=== PATIENT | female | born 1965 | race Caucasian/White ===

== ENCOUNTER → 2020-12-12 15:26 | Outpatient (CLI) | payer OTHER, SELFPAY ==
--- NOTE | ~2020-12-12 | US_ITS ---
EXAMINATION: US pelvic complete EXAM DATE: 12/12/2020 15:50 INDICATION: Other specified abnormal uterine and vaginal bleeding. 55 years old. TECHNIQUE: Pelvic transabdominal sonogram was performed. There are multiple grayscale and Doppler im ages available for interpretation. There is no prior study for comparison. FINDINGS: Uterus measures 14.3 x 5.8 x 8.6 cm, with anterior fibroid measuring up to 3.8 cm. Endomet rial stripe measures 10 mm, within normal limits for premenopausal patient. There is no free pelvic fluid. Right adnexa: The ovary measures 3.8 x 2.9 x 3.1 cm and is morphologically normal. Ovarian vascular f low confirmed. Left adnexa: The ovary measures 4.8 x 2.9 x 4.4 cm and is morphologically normal. Ovarian vascular fl ow confirmed. IMPRESSION: 1. Anterior myometrial fibroid. 2. Endometrium 10 mm in thickness within normal limits for reported premenopausal status. Reviewed, dictated and finalized at location A. IMPRESSION: 1. Anterior myometrial fibroid. 2. Endometrium 10 mm in thickness within normal limits for reported premenopau simeon status.
== END ==
PROVIDERS: Visit Provider Obstetrics & Gynecology
DX: N93.8 Other specified abnormal uterine and vaginal bleeding (principal)
CPT/HCPCS: 76856

== ENCOUNTER 2021-01-11 02:00 | Day surgery (SDC) | payer OTHER, SELFPAY ==
[2021-01-09 09:23] VITALS: BMI 25.9
--- NOTE | 2021-01-10 17:25 | WPDANESEPP ---
Anes - Eval Pre Procedure Procedure: Operation Date: 01/11/21 07:30 Proposed Procedures p Hysteroscopy Dilation and Curettage - Nasim Cornell MD Date/Time: 01/10/21 17:25 Pre Op Diagnosis: Abnormal Uterine Bleeding Patient Data Age: 55 Gender: F Height: 1.68 m Weight: 73 kg Allergies Allergy/AdvReac Type Severity Reaction Status Date / Time No Known Allergies Allergy Verified 01/18/18 19:58 Home Medications Medication Instructions Recorded Confirmed Type multivitamin [Chewable 1 tablet PO DAILY 01/09/21 01/09/21 History Multivitamin] Patient hx anesthesia problems: none Family hx anesthesia problems: none PMFSH Past Medical History Medical History (Updated 01/10/21 @ 17:25 by Qasim Buchanan DO) Healthy adult Surgical History Surgical History (Updated 01/10/21 @ 17:25 by Qasim Buchanan DO) History of eye surgery Social History Social History Smoking status: Never smoker Living arrangements: with family Exam Day of Procedure 01/10/21 17:25
[2021-01-11 06:21] VITALS: BP 141/74; PULSE 76; RESP 20; TEMP 36.2; O2SAT 100
[2021-01-11] MEDS: ACETAMINOPHEN 500 MG TABLET 1000 MG PO (06:39)
[2021-01-11] MEDS: LACTATED RINGERS 1,000 ML 30 ML IV CONT ×2 (06:50→08:01)
--- NOTE | 2021-01-11 06:50 | WPDANESEFPP ---
Anes - Eval Final PreProcedure Day of Procedure 01/11/21 06:50 Patient weight: overweight Heart: regular rate and rhythm Lungs: clear to auscultation Airway: Mallampati scale class II Neurological: alert and oriented Last oral intake: >/= 8 hours ASA classification: II Emergent: no Anesthetic plan: proceed Anesthesia type and monitoring: general GIVS and standard monitoring Informed Consent: The patient's anesthetic plan and its attendant risks and benefits were discussed with the patient/family/POA. Questions were solicited and answers provided to the satisfaction of the patient/family/POA.
--- NOTE | 2021-01-11 07:22 | PM.HPGS ---
History of Present Illness History of Present Illness Consent: Risks, benefits, and alternatives have been discussed and questions answered. Patient agrees to proceed with procedure. Chief complaint: Abnormal Uterine Bleeding Narrative: Clare Singh is a 55 year old female nullip with abnormal uterine bleeding cycles longer than 10 days a month. ultrasound thickened stripe and questionable fibroid. Review of Systems Review of Systems: All systems reviewed & are unremarkable except as noted in HPI and below PMFSH Past Medical History Medical History (Updated 01/11/21 @ 07:23 by Nasim Cornell MD) Abnormal uterine bleeding (AUB) Healthy adult Surgical History Surgical History History of eye surgery Social History Social History Smoking status: Never smoker Living arrangements: with family Meds Home Medications and Allergies Home Medications Medication Instructions Recorded Confirmed Type multivitamin [Chewable 1 tablet PO DAILY 01/09/21 01/11/21 History Multivitamin] Allergies Allergy/AdvReac Type Severity Reaction Status Date / Time No Known Allergies Allergy Verified 01/18/18 19:58 Vital Signs Vital Signs - 24 hr 01/11/21 06:21 Temperature 36.2 C L Pulse Rate 76 Respiratory Rate 20 Blood Pressure 141/74 H Pulse Oximetry 100 Exam GI: Auscultation: normal bowel sounds : Bimanual exam- vagina & uterus: normal bimanual exam Bimanual Exam- Adnexa, other: normal adnexae and adnexae mobile Assessment and Plan Assessment and plan (1) Abnormal uterine bleeding (AUB): Code(s): N93.9 - Abnormal uterine and vaginal bleeding, unspecified Status: Acute Assessment and Plan: scheduled for a hysteroscopy with dilation and curettage. Risk and benefits reviewes with patient.
--- NOTE | 2021-01-11 07:25 | WPDHPUPDATE1 ---
History and Physical Update Update Date/Time: 01/11/21 07:25 History and Physical has been reviewed, including an updated exam of the patient. There are NO changes in the patient's condition. Risks, benefits, and alternatives have been discussed and questions answered. Patient agrees to proceed with procedure.
[2021-01-11 07:29] LABS: Beta HCG Quantitative < 2.39 mIU/ML
[2021-01-11 08:01] VITALS: BP 120/63; PULSE 75; RESP 16; O2SAT 96
--- NOTE | 2021-01-11 08:04 | W.PM.PROC2 ---
Procedure Note - Detailed Date of Procedure 01/11/21 Pre-op Diagnosis Abnormal Uterine Bleeding Post-op Diagnosis same Procedure Performed hysteroscopy d and c Surgeon Nasim Cornell MD Anesthesia local Description of Procedure Patient was taken to the operating room with IV running. She was prepared and draped in a normal sterile fashion. A bivalve speculum was placed into the vagina. The anterior lip of the cervix was grasped with a single-tooth tenaculum. The cervix was injected with 1% lidocaine at the 2 and 10 o'clock position 5cc bilaterally. The uterus was sounded to 6cm. And the cervix was serially dilated with Hegar dilators. Hysteroscope introduced and noted uterine septum with bilateral ostia. Hysteroscope was removed sharp curettage was performed in all 4 quadrants and specimen sent to pathology. Instruments were removed from the vagina hemostasis was assured patient is taken to recovery room Estimated Blood Loss 10 Drains Yes Packing No Pathology yes Complications None Condition stable Disposition observation
[2021-01-11 08:30] VITALS: BP 151/80; PULSE 52; RESP 20
[2021-01-11 09:00] VITALS: BP 162/74; PULSE 53; RESP 20
[2021-01-11 09:30] VITALS: BP 153/66; PULSE 51; RESP 20
== END 2021-01-11 09:41 | disposition home or self-care (01) ==
PROVIDERS: Anesthesiology; Visit Provider Obstetrics & Gynecology
PROC: 0U5B8ZZ Destruction of Endometrium, Via Natural or Artificial Opening Endoscopic (ICD-10-PCS; CPT 58563; principal; 2021-01-11 07:30)
DX: N93.9 Abnormal uterine and vaginal bleeding, unspecified (principal)
CPT/HCPCS: 58558; 36415; 84702; 88305; A9270; J2250; J3010; J7030; J7120

== ENCOUNTER 2021-04-24 00:50 | Day surgery (SDC) | payer OTHER, SELFPAY ==
[2021-04-06 14:07] VITALS: BMI 24.9
--- NOTE | 2021-04-24 08:18 | WPDANESEPPF ---
Anes - Initial Pre Proc Eval Procedure: Operation Date: 04/24/21 11:30 Proposed Procedures p Screening Colonoscopy - Benjy Mccoy MD Date/Time: 04/24/21 08:19 Surgeon: Benjy Mccoy MD Pre Op Diagnosis: neoplasm screening Patient Data Age: 55 Gender: F Height: 1.68 m Weight: 70 kg Allergies Allergy/AdvReac Type Severity Reaction Status Date / Time No Known Allergies Allergy Verified 04/06/21 14:06 Home Medications Medication Instructions Recorded Confirmed Type multivitamin [Chewable 1 tablet PO DAILY 01/09/21 04/06/21 History Multivitamin] Patient hx anesthesia problems: none Family hx anesthesia problems: none Results Review: All pre-operative results and documents have been reviewed as part of the pre-operative evaluation. [facility] Past Medical History Medical History (Updated 04/24/21 @ 08:19 by Rogerio Renae MD) Abnormal uterine bleeding (AUB) Anemia Healthy adult Surgical History Surgical History History of eye surgery Social History Social History Smoking status: Never smoker Alcohol intake: current Alcohol use details: Monthly Living arrangements: with family Spiritual care concerns: No Anes - Eval Final PreProcedure Day of Procedure 04/24/21 08:19 Patient weight: normal Heart: regular rate and rhythm Lungs: clear to auscultation and normal air movement Airway: Mallampati scale class II Neurological: alert and oriented Last oral intake: >/= 8 hours ASA classification: I Emergent: no Anesthetic plan: proceed Anesthesia type and monitoring: general GIVS Results Review: All pre-operative results and documents have been reviewed as part of the pre-operative evaluation. Informed Consent: The patient's anesthetic plan and its attendant risks and benefits were discussed with the patient/family/POA. Questions were solicited and answers provided to the satisfaction of the patient/family/POA.
[2021-04-24 10:44] VITALS: BP 150/82; PULSE 97; RESP 18; TEMP 37.2; O2SAT 100
[2021-04-24] MEDS: LACTATED RINGERS 1,000 ML 150 ML IV CONT (10:51)
[2021-04-24 11:21] VITALS: BP 124/67; PULSE 66; RESP 14; O2SAT 99
--- NOTE | 2021-04-24 11:21 | WPDGICN ---
Assessment and Plan Assessment and plan (1) Encounter for screening colonoscopy: Code(s): Z12.11 - Encounter for screening for malignant neoplasm of colon Status: Acute Assessment and Plan: Patient presents today for screening colonoscopy. She appears to be at average risk for colon polyps. GI Consult Note Consult date/time: 04/24/21 11:21 HPI: Clare Singh is a 55 year old female Presents for screening colonoscopy. Patient reports that her current weight appetite and bowel movements are normal. She denies abdominal pain. She has had no bleeding. Family history is noncontributory. Patient reports 7 years ago had a negative Cologuard test. Review of Systems Review of Systems: All systems reviewed & are unremarkable except as noted in HPI and below PMFSH Past Medical History Medical History (Updated 04/24/21 @ 11:22 by Benjy Mccoy MD) Abnormal uterine bleeding (AUB) Anemia Healthy adult Surgical History Surgical History History of eye surgery Social History Social History Smoking status: Never smoker Alcohol intake: current Alcohol use details: Monthly Living arrangements: with family Spiritual care concerns: No Meds Home Medications and Allergies Home Medications Medication Instructions Recorded Confirmed Type multivitamin [Chewable 1 tablet PO DAILY 01/09/21 04/06/21 History Multivitamin] Allergies Allergy/AdvReac Type Severity Reaction Status Date / Time No Known Allergies Allergy Verified 04/24/21 10:42 Vital Signs Vital Signs - 24 hr 04/24/21 10:44 Temperature 99 F Pulse Rate 97 Respiratory Rate 18 Blood Pressure 150/82 H Pulse Oximetry 100 Exam Narrative: Physical exam reveals patient be alert. Vital signs stable. HEENT exam is unremarkable. Patient is anicteric. Lungs are clear to auscultation and percussion. Heart is without murmur or extra sounds. Abdominal exam bowel sounds are present soft nontender with no organomegaly. Digital external rectal exam is normal.
[2021-04-24 11:31] VITALS: BP 121/86; PULSE 78; RESP 14; O2SAT 100
[2021-04-24 11:41] VITALS: BP 127/85; PULSE 62; RESP 13; O2SAT 100
== END 2021-04-24 11:54 | disposition home or self-care (01) ==
PROVIDERS: Visit Provider Internal Medicine Gastroenterology
PROC: 0DJD8ZZ Inspection of Lower Intestinal Tract, Via Natural or Artificial Opening Endoscopic (ICD-10-PCS; CPT 45378; principal; 2021-04-24 11:30)
DX: Z12.11 Encounter for screening for malignant neoplasm of colon (principal); K64.8 Other hemorrhoids; D64.9 Anemia, unspecified
CPT/HCPCS: 45378; J2704; J7120

== ENCOUNTER 2022-03-13 13:44 | Outpatient (CLI) | payer OTHER, SELFPAY ==
[2022-03-13 14:24] LABS: Hematocrit 35.7 % (37.0-47.0); Hemoglobin 11.3 g/dL (12.0-15.0); Mean Corpuscular HGB Conc 31.7 g/dl (32-36); Mean Corpuscular Hemoglobin 28.8 pg (26-34); Mean Corpuscular Volume 91.1 fl (80-100); Mean Platelet Volume 10.1 fl (7.4-10.4); Platelet Count Result 302 k/mm3 (150-375); Red Blood Count 3.92 M/mm3 (4.2-5.4); Red Cell Distribution Width 13.2 % (11.5-14.5); White Blood Count 6.8 K/mm3 (4.5-10.0)
== END 2022-03-13 13:45 | disposition home or self-care (01) ==
PROVIDERS: Visit Provider Obstetrics & Gynecology Gynecology
DX: N93.8 Other specified abnormal uterine and vaginal bleeding (principal)
CPT/HCPCS: 36415; 85027

== ENCOUNTER → 2023-06-07 10:19 | Outpatient (CLI) | payer OTHER, SELFPAY ==
--- NOTE | ~2023-06-07 | DEXA_ITS ---
Bone Density Report Name: DARVIN MOSER Age: 57 Sex: Female Ethnicity: White Date of : 1965 Indication: postmenopausal; screening for osteoporosis; Referring Provider: REEMA LONDON Study: Bone densitometry was performed. Exam Date: June 07, 2023 Accession number: [id number] Bone Density: Region BMD T-score Z-score Classification AP Spine (L1-L4) 1.010 -0.3 1.1 Normal Femoral Neck (Left) 0.837 -0.1 1.2 Normal Total Hip (Left) 0.939 0.0 0.9 Normal Femoral Neck (Right) 0.791 -0.5 0.7 Normal Total Hip (Right) 0.917 -0.2 0.7 Normal Total Hip Mean 0.928 -0.1 0.8 Normal World Health Organization criteria for BMD impression classify patients as: Normal (T-score at or above -1.0), Osteopenia (T-score between -1.0 and -2.5), or Osteoporosis (T-score at or below -2.5). 10-year Fracture Risk: FRAX not reported because: All T-scores for Spine Total, Hip Total, Femoral Neck at or above -1.0 Clinical Information Provided by Patient: Has used the following medications: Vitamin D Patient maximum height was 66.0 Menopause Age: 56 Drinks caffeinated beverages Onset of menses at age 10 Number of children 0 Impression: The patient has normal bone mass. Discussion: BONE DENSITY IS ABOVE THE MINIMUM DESIRABLE LEVEL AT ALL SKELETAL SITES TESTED. This patient?s bone mineral density is above the minimum desirable level (T-score -1.0 or better) at all sites measured. The patient should follow a healthful lifestyle (good nutrition with adequate calcium and vitamin D, and appropriate weight-bearing exercise). Follow-Up: Consider repeating this study in 5 years or sooner if there is some new clinical indication. Reported by: [facility] on 06/07/2023 11:19:00 AM. Reviewed, dictated and finalized at location AValentín BENSON
== END ==
PROVIDERS: PCP Obstetrics & Gynecology Gynecology; Visit Provider Obstetrics & Gynecology Gynecology
DX: Z78.0 Asymptomatic menopausal state (principal)
CPT/HCPCS: 77080

== ENCOUNTER 2023-07-08 01:28 | Day surgery (SDC) | payer OTHER, SELFPAY ==
[2023-06-26 15:42] VITALS: BMI 25.8
--- NOTE | 2023-06-26 15:46 | PC.NURSE ---
Report to the Outpatient Waiting Room, entrance under the green pavilion located off [facility], at time 1115 on date 07/08/23. Planned Procedure Time: 1315. Time changes happen often and if your time is changed the preop area will call you the afternoon before. - You and your visitor will be asked to self-screen and do not enter if you have any COVID symptoms. - A mask is optional within the hospital at this time. Patients may have clear liquids (water, carbonated beverages, clear teas, apple juice) until 3 hours prior to surgery with a maximum of 20 ounces. - No food from midnight until time of surgery Take the following medications with a SIP of water the morning of surgery: NONE DO NOT STOP ANY OF YOUR OTHER PRESCRIPTION MEDICATIONS PRIOR TO SURGERY ?EXCEPT THE FOLLOWING Medications to discontinue per physician: VITAMINS/SUPPLEMENTS Date to take last dose: 07/04/23 Please no make-up, nail paraguayan, hairspray, perfume, deodorant, or body powder the day of surgery. No jewelry (including any body piercings) or valuables the day of surgery, leave them at home. Please take a shower or bath the night before, or the morning of, surgery with an antibacterial soap. Wear comfortable, loose fitting clothing. - Jewelry must be removed prior to entering the operating room. Rings and piercings that are not removed may be cut off. - The hospital will not accept responsibility for valuables. - Please leave all valuables, including medications, at home the day of surgery. If you are going home after surgery, a licensed race car driver must drive you home. - NO public transportation without another adult if you receive anesthesia. - We recommend that an adult stay with you for 24 hours following discharge. - We also recommend that you do not drive, make important decision, drink alcoholic beverages, or take any drugs that were not prescribed by your health care provider for at least 24 hours after your discharge time. Follow any additional instructions given to you from your surgeon. If you or anyone in your household have experienced Covid symptoms in the past week, please notify your surgeon or the nurse liaison at the phone number below for possible testing. Telephone instructions given to PT - CHRISTINA MOSER and asked if any additional questions and then verbalized understanding. Patient advised to call surgeon office or pre surgery nurse liaison [phone] if any additional questions.
--- NOTE | 2023-07-08 08:47 | WPDHPUPDATE1 ---
History and Physical Update Update Date/Time: 07/08/23 08:47 History and Physical has been reviewed, including an updated exam of the patient. There are NO changes in the patient's condition. Risks, benefits, and alternatives have been discussed and questions answered. Patient agrees to proceed with procedure.
--- NOTE | 2023-07-08 08:47 | PM.HPGS ---
History of Present Illness History of Present Illness Consent: Risks, benefits, and alternatives have been discussed and questions answered. Patient agrees to proceed with procedure. Chief complaint: post menopausal bleeding Narrative: Clare Singh is a 57 year old female with postmenopausal bleeding had in May of 2023. As recommended to undergo D&C hysteroscopy. Risks of infection, bleeding, perforation, and possible pathology are reviewed. Patient voices understanding and agrees to proceed. Review of Systems Review of Systems: not repeated day of surgery; patient states no changes in status [facility] Past Medical History Medical History (Updated 07/08/23 @ 08:49 by Audrey Darling MD) Healthy adult Surgical History Surgical History History of eye surgery Social History Social History Smoking status: Never smoker Alcohol intake: current Alcohol use details: 1 GLASS OF WINE EVERY 2 MONTHS Substance use: never Substance use type: does not use Living arrangements: with family Spiritual care concerns: No Meds Home Medications and Allergies Home Medications Medication Instructions Recorded Confirmed Type multivitamin 1 tablet PO DAILY 01/09/21 06/26/23 History ergocalciferol (vitamin D2) 1,250 1,250 mcg PO WEEKLY 06/26/23 06/26/23 History mcg (50,000 unit) capsule Allergies Allergy/AdvReac Type Severity Reaction Status Date / Time No Known Allergies Allergy Verified 06/26/23 15:41 Exam Const: General: healthy appearing and alert Orientation/consciousness: patient oriented x3 Resp: Effort & Inspection: normal respiratory effort : External Female Exam: normal external appearance Speculum Exam - Vagina: normal appearance of the vagina and normal vaginal discharge Speculum Exam - Cervix: normal appearance of the cervix Bimanual exam- vagina & uterus: uterine size normal and consistency normal Bimanual Exam- Adnexa, other: normal adnexae and No adnexal tenderness Neuro: General: patient oriented x3 Assessment and Plan Assessment and plan (1) Post-menopausal bleeding: Code(s): N95.0 - Postmenopausal bleeding Status: Acute Assessment and Plan: Plan to proceed with D&C hysteroscopy
[2023-07-08 11:23] VITALS: BP 166/80; PULSE 61; RESP 20; TEMP 36.4; O2SAT 100
[2023-07-08] MEDS: ACETAMINOPHEN 500 MG TABLET 1000 MG PO (11:32)
[2023-07-08] MEDS: LACTATED RINGERS 1,000 ML 30 ML IV CONT (11:35)
--- NOTE | 2023-07-08 12:09 | WPDANESEPPF ---
Anes - Initial Pre Proc Eval Procedure: Operation Date: 07/08/23 13:15 Proposed Procedures p Hysteroscopy, Dilation and Curettage - Audrey Darling MD Date/Time: 07/08/23 12:09 Surgeon: Audrey Darling MD Pre Op Diagnosis: post menopausal bleeding Patient Data Age: 57 Gender: F Height: 1.68 m Weight: 72.3 kg Last Vital Signs Temp 36.4 C 07/08/23 11:23 Pulse 61 07/08/23 11:23 Resp 20 07/08/23 11:23 BP 166/80 H 07/08/23 11:23 Pulse Ox 100 07/08/23 11:23 O2 Del Method Room Air 07/08/23 11:23 Allergies Allergy/AdvReac Type Severity Reaction Status Date / Time No Known Allergies Allergy Verified 06/26/23 15:41 Home Medications Medication Instructions Recorded Confirmed Type multivitamin 1 tablet PO DAILY 01/09/21 07/08/23 History ergocalciferol (vitamin D2) 1,250 1,250 mcg PO WEEKLY 06/26/23 07/08/23 History mcg (50,000 unit) capsule Patient hx anesthesia problems: none Family hx anesthesia problems: none Results Review: All pre-operative results and documents have been reviewed as part of the pre-operative evaluation. [facility] Past Medical History Medical History (Updated 07/08/23 @ 12:09 by Dani Wu MD) Anemia Post-menopausal bleeding Surgical History Surgical History History of eye surgery Social History Social History Smoking status: Never smoker Alcohol intake: current Alcohol use details: 1 GLASS OF WINE EVERY 2 MONTHS Substance use: never Substance use type: does not use Living arrangements: with family Spiritual care concerns: No Anes - Eval Final PreProcedure Day of Procedure 07/08/23 12:09 Patient weight: overweight Heart: regular rate and rhythm Lungs: clear to auscultation Airway: Mallampati scale class II Neurological: alert and oriented Last oral intake: >/= 8 hours ASA classification: II Emergent: no Anesthetic plan: proceed Anesthesia type and monitoring: general GIVS and standard monitoring Results Review: All pre-operative results and documents have been reviewed as part of the pre-operative evaluation. Informed Consent: The patient's anesthetic plan and its attendant risks and benefits were discussed with the patient/family/POA. Questions were solicited and answers provided to the satisfaction of the patient/family/POA.
[2023-07-08 12:46] VITALS: BP 129/81; PULSE 55; RESP 14; O2SAT 96
--- NOTE | 2023-07-08 12:46 | P.OP_ITS ---
Procedure Note - Detailed Date of Procedure 07/08/23 Pre-op Diagnosis post menopausal bleeding Post-op Diagnosis Same Procedure Performed D&C hysteroscopy Surgeon Audrey Darling MD Anesthesia MAC Findings uterus sounds to 6cm; there is a large septum in the midline; atrophic appearing endometrium Description of Procedure The patient is taken to the operating room and placed under anesthesia in the dorsal lithotomy position. She was prepped and draped in usual sterile fashion. [place] speculum was placed in the vagina and the cervix grasped on the anterior lip with a tenaculum. The uterus is sounded to 6cm. The diagnostic hysteroscope was placed and with the above-stated findings it is removed. The OO sharp curette is used to curette the endometrium until a good uterine cry was noted in all areas. Minimal material was obtained consistent with the atrophic appearance. Estimated Blood Loss 5 Drains No Packing No Pathology Yes ( Endometrial curettings) Complications No immediate complications Condition Stable Disposition PACU
[2023-07-08 13:15] VITALS: BP 143/74; PULSE 52; RESP 14; O2SAT 99
[2023-07-08 13:45] VITALS: BP 147/88; PULSE 58; RESP 16
[2023-07-08 14:00] VITALS: BP 142/78; PULSE 55; RESP 18
== END 2023-07-08 14:09 | disposition home or self-care (01) ==
PROVIDERS: PCP Family Medicine; Visit Provider Obstetrics & Gynecology Gynecology
PROC: 0U5B8ZZ Destruction of Endometrium, Via Natural or Artificial Opening Endoscopic (ICD-10-PCS; CPT 58563; principal; 2023-07-08 13:15)
DX: N95.0 Postmenopausal bleeding (principal); D64.9 Anemia, unspecified
CPT/HCPCS: 58558; 88305; A9270; J1100; J1885; J2250; J2405; J2704; J3010; J7120